=== PATIENT | male | born 1985 | race Caucasian/White ===

== ENCOUNTER 2017-11-05 08:08 | Emergency (ER) | payer OTHER ==
[2015-08-10 10:49] VITALS: BMI 25.0
[~2017-11-05 08:08] MED LIST: ALP5 PO; ALPR-445 PO; ASPI-757 PO; ATIVAN; CAPS60CR TP; CEFU500T10 PO; CELEXA PO; CIT20 PO; CLO1 PO; CLON-298 PO; DIVA500T98 PO; DOCU-416 PO; DULO30CA35 PO; DULO60CA56 PO; ESOM40CA42 PO; GABA-549 PO; LANS30CA70 PO; NAPR-724 PO; ONDA4TAB9 PO; OXYC-823 PO; PANT20TA27 PO; PER PO; SUMA100T33 PO; SUMA5SPR7 PO
[2017-11-05] MEDS ORDERED: NS(*) 0.9% 1000 ML BAG 1,000 ML IV ONE ×2 (08:12)
[2017-11-05] MEDS ORDERED: ONDANSETRON 4 MG/2 ML VIAL IVP ONE (08:15)
--- NOTE | 2017-11-05 08:19 | ER Report ---
History and Physical Time Seen By MD: 08:17 HPI/ROS CHIEF COMPLAINT: Vomiting HISTORY OF PRESENT ILLNESS: Patient is a 32-year-old male suffers from migraines for which she takes Imitrex had a late night partying last night as it was New Year's Kandace drank a significant amount of beer woke up about 3:30 in the morning persistent vomiting nonbloody nonbilious intractable came to the emergency room mild to moderate epigastric discomfort otherwise no additional complaints of note REVIEW OF SYSTEMS: Respiratory: No cough, no dyspnea. Cardiovascular: No chest pain, no palpitations. Gastrointestinal: Vomiting and mild abdominal discomfort Musculoskeletal: No back pain. Remainder of the 14 system rev: Yes Allergies: Coded Allergies: No Known Drug Allergies (Verified , 08/13/15) Home Meds Active Scripts Cefuroxime Axetil (CEFUROXIME) 500 Mg Tablet, 500 MG PO BID, #10 TAB 0 Refills Prov:ANNI MCDONNELL MD FACP 08/12/15 Reported Medications Esomeprazole Magnesium (NEXIUM) 40 Mg Capsule.dr, 1 CAP PO QDAY, CAP 08/10/15 Duloxetine Hcl (CYMBALTA) 60 Mg Capsule.dr, 60 MG PO QDAY, #5 CAP 08/09/15 Duloxetine Hcl (CYMBALTA) 30 Mg Capsule.dr, 30 MG PO QDAY, #5 CAP 08/09/15 Docusate Sodium (COLACE) 100 Mg Capsule, 100 MG PO BID, CAPSULE 08/09/15 Sumatriptan Succinate (SUMATRIPTAN SUCCINATE) 100 Mg Tablet, 1 TAB PO PRN for 30 Days 11/23/14 Gabapentin (GABAPENTIN) 300 Mg Capsule, 300 MG PO TID, CAPSULE 10/25/14 Discontinued Reported Medications Oxycodone/Acetaminophen (OXYCODONE/ACETAMINOPHEN 5MG/325 MG) 5 Mg/325 Mg Tab, 1- 2 TAB PO Q4H for PAIN 08/10/15 Clonazepam (CLONAZEPAM) 0.5 Mg Tablet, 0.5 MG PO PRN, #6 TAB 08/09/15 Oxycodone Hcl (OXYCONTIN) 10 Mg Tab.er.12h, 10 MG PO Q12H 08/09/15 Naproxen (NAPROXEN) 500 Mg Tablet, 500 MG PO BID, TAB 08/09/15 Aspirin (ASPIRIN) 325 Mg Tablet, 325 MG PO DAILY, TAB 10/5/15 Discontinued Scripts Ondansetron (ONDANSETRON ODT) 4 Mg Tab.rapdis, 4 MG PO Q6H, #10 TAB One tablet every 6 hours as needed for nausea and vomiting. Prov:ANNABELLA GREENFIELD BEAUTY ADVISOR 08/13/15 Reviewed Nurses Notes: Yes Old Medical Records Reviewed: Yes Hx Smoking: Yes Smoking Status: Former Smoker Constitutional Vital Sign - Last 24 Hours 11/05/17 08:19 Pulse 70 Resp 18 Pulse Ox 98 O2 Delivery Room Air Physical Exam General Appearance: The patient is alert, has no immediate need for airway protection and no current signs of toxicity. Actively vomiting Eyes: Pupils equal and round no injection. Respiratory: Chest is non tender, lungs are clear to auscultation. Cardiac: regular rate and rhythm [ ] Gastrointestinal: Abdomen is soft and non tender, no masses, bowel sounds normal. Musculoskeletal: Neck: Neck is supple and non tender. Extremities have full range of motion and are non tender. Skin: No rashes or lesions. [ ] DIFFERENTIAL DIAGNOSIS: After history and physical exam differential diagnosis was considered for enteritis gastroenteritis alcohol toxicity alcohol poisoning Medical Decision Making Data Points Result Diagram: 11/05/17 0820 11/05/17 0820 Laboratory Hematology Test 11/05/17 08:20 Red Blood Count 6.07 M/uL (4.00-5.60) Mean Corpuscular Volume 87.3 fL (80.0-96.0) Mean Corpuscular Hemoglobin 30.4 pg (26.0-33.0) Mean Corpuscular Hemoglobin Concent 34.8 g/dL (32.0-36.0) Red Cell Distribution Width 12.7 % (11.5-14.5) Mean Platelet Volume 6.5 fL (7.2-11.1) Neutrophils (%) (Auto) 73.6 % (39.4-72.5) Lymphocytes (%) (Auto) 19.8 % (17.6-49.6) Monocytes (%) (Auto) 4.6 % (4.1-12.4) Eosinophils (%) (Auto) 1.5 % (0.4-6.7) Basophils (%) (Auto) 0.5 % (0.3-1.4) Nucleated RBC Relative Count (auto) 0.1 /100WBC Neutrophils # (Auto) 9.1 K/uL (2.0-7.4) Lymphocytes # (Auto) 2.5 K/uL (1.3-3.6) Monocytes # (Auto) 0.6 K/uL (0.3-1.0) Eosinophils # (Auto) 0.2 K/uL (0.0-0.5) Basophils # (Auto) 0.1 K/uL (0.0-0.1) Nucleated RBC Absolute Count (auto) 0.01 K/uL Sodium Level 144 mmol/L (137-145) Potassium Level 3.9 mmol/L (3.5-5.0) Chloride Level 103 mmol/L (98-107) Carbon Dioxide Level 28 mmol/L (22-30) Blood Urea Nitrogen 13 mg/dl (9-21) Creatinine 0.80 mg/dl (0.66-1.25) Glomerular Filtration Rate Calc > 60.0 Random Glucose 103 mg/dl (75-110) Calcium Level 9.3 mg/dl (8.4-10.2) Total Bilirubin 0.6 mg/dl (0.2-1.3) Aspartate Amino Transf (AST/SGOT) 33 U/L (0-35) Alanine Aminotransferase (ALT/SGPT) 47 U/L (0-56) Alkaline Phosphatase 61 U/L (0-126) Total Protein 7.9 gm/dl (6.3-8.2) Albumin 4.6 g/dl (3.5-5.0) Lipase 76 U/L (23-300) Serum Alcohol 178 mg/dl Chemistry Test 11/05/17 08:20 White Blood Count 12.4 k/uL (4.5-11.0) Red Blood Count 6.07 M/uL (4.00-5.60) Hemoglobin 18.4 g/dL (14.0-18.0) Hematocrit 52.9 % (42.0-52.0) Mean Corpuscular Volume 87.3 fL (80.0-96.0) Mean Corpuscular Hemoglobin 30.4 pg (26.0-33.0) Mean Corpuscular Hemoglobin Concent 34.8 g/dL (32.0-36.0) Red Cell Distribution Width 12.7 % (11.5-14.5) Platelet Count 238 K/uL (150-450) Mean Platelet Volume 6.5 fL (7.2-11.1) Neutrophils (%) (Auto) 73.6 % (39.4-72.5) Lymphocytes (%) (Auto) 19.8 % (17.6-49.6) Monocytes (%) (Auto) 4.6 % (4.1-12.4) Eosinophils (%) (Auto) 1.5 % (0.4-6.7) Basophils (%) (Auto) 0.5 % (0.3-1.4) Nucleated RBC Relative Count (auto) 0.1 /100WBC Neutrophils # (Auto) 9.1 K/uL (2.0-7.4) Lymphocytes # (Auto) 2.5 K/uL (1.3-3.6) Monocytes # (Auto) 0.6 K/uL (0.3-1.0) Eosinophils # (Auto) 0.2 K/uL (0.0-0.5) Basophils # (Auto) 0.1 K/uL (0.0-0.1) Nucleated RBC Absolute Count (auto) 0.01 K/uL Glomerular Filtration Rate Calc > 60.0 Calcium Level 9.3 mg/dl (8.4-10.2) Total Bilirubin 0.6 mg/dl (0.2-1.3) Aspartate Amino Transf (AST/SGOT) 33 U/L (0-35) Alanine Aminotransferase (ALT/SGPT) 47 U/L (0-56) Alkaline Phosphatase 61 U/L (0-126) Total Protein 7.9 gm/dl (6.3-8.2) Albumin 4.6 g/dl (3.5-5.0) Lipase 76 U/L (23-300) Serum Alcohol 178 mg/dl Toxicology Test 11/05/17 08:20 Serum Alcohol 178 mg/dl ED Course/Re-evaluation ED Course ED clinical course medical decision making 32-year-old male presented with persistent vomiting he was still clinically intoxicated with a blood alcohol of 174 received medications for antiemetic he received several liters of fluids he is advised to discontinue alcohol consumption at this time continue with his antiemetics continue to tolerate by mouth fluids and to follow up with primary care diagnosis alcohol-induced and alcohol toxicity Decision to Disposition Date: Nov 05, 2017 Decision to Disposition Time: 09:44 Depart Departure Latest Vital Signs Vital Signs Date Time Temp Pulse Resp B/P (MAP) Pulse Ox O2 Delivery O2 Flow Rate FiO2 11/05/17 08:19 70 18 98 Room Air Impression: Primary Impression: Alcohol poisoning Additional Impression: Alcohol intoxication Referrals: MAGDALENE STEWARD PA-C (PCP) New Scripts Ondansetron (ZOFRAN ODT) 4 Mg Tab.rapdis 4 MG PO Q6H Y for NAUSEA, #20 TAB 0 Refills TAKE 1 TABLET BY MOUTH EVERY 12 HOURS Prov: ANNI FERNÁNDEZ MD 11/05/17 Patient Instructions: Abuse of Alcohol (DC), Alcohol Intoxication (DC) Problem Qualifiers ANNI FERNÁNDEZ MD Nov 05, 2017 08:19
[2017-11-05 08:43] LABS: PLATELET COUNT, AUTOMATED 238 K/uL (150-450)
[2017-11-05] MEDS ORDERED: ONDA4TAB PO (09:45)
[2017-11-05 09:59] VITALS: BP 128/107
== END 2017-11-05 09:52 | disposition home or self-care (01) ==
LOC: ER 08:14
DX: T51.91XA Toxic effect of unspecified alcohol, accidental (unintentional), initial encounter (principal)
CPT/HCPCS: 80320; 83690; 85025; 96361; 96374; 99284; J2405; J7030; 82040; 82247; 82310; 82374; 82435; 82565; 82947; 84075; 84132; 84155; 84295; 84450; 84460; 84520

== ENCOUNTER → 2018-03-12 | Outpatient (CLI) | payer OTHER ==
[2015-08-10 10:49] VITALS: BMI 25.0
[~2018-03-12] MED LIST changes: +GADOBENATE 529MG/1ML 15ML VIAL IVP ONE; -NAPR-724 PO; +NAPR500T31 PO; +ONDA4TAB PO
--- NOTE | 2018-03-12 14:28 | RADIOLOGY IMAGING REPORT ---
FACILITY: [facility] - [place], [place] PATIENT NAME: Will Sotelo : 1985 MR: [id number] V: [id number] EXAM DATE: ORDERING PHYSICIAN: FAMILIA ENAMORADO TECHNOLOGIST: Location: [facility] - [place] Patient: Will Sotelo : 1985 Visit/Account:[id number] Date of Sevice: 03/12/2018 EXAMINATION: MRI Brain without intravenous contrast MRI Brain with intravenous contrast MRI Cervical spine without intravenous contrast MRI Cervical spine with intravenous contrast MRI Thoracic spine without intravenous contrast MRI Thoracic spine with intravenous contrast HISTORY: Hyperreflexia. Urinary incontinence. Prior back surgery. Numbness. COMPARISON: Brain MRI dated 02/03/2016. Cervical spine MRI dated 02/03/2016. Chest CT dated 5. Thoracic spine radiographs dated 06/16/2006. TECHNIQUE: Multi-planar, multi-sequence brain, cervical spine, and thoracic spine MRI was performed before and after IV gadolinium. CONTRAST: 14 mL of IV MultiHance FINDINGS: BRAIN: Brain volume: Normal. Sagittal midline structures: Negative. Ventricles: Negative. Acute ischemic changes: None. Hemorrhage: None. Masses / edema: None. Enhancement: Negative. Londono-white: Negative. White matter: 5 punctate white matter lesions in the frontal lobes and left subinsular region (serie s 8, images 13, 14, 20, and 21). No abnormal enhancement or restricted diffusion. Vessels: Developmental venous anomaly at the junction of the right parietal and occipital lobes drai edwige into the superior sagittal sinus. Otherwise negative. Extra-axial: None. Calvarium / scalp: Negative. Skull base: Negative. Visualized sinuses / orbits: Rightward nasal septal deviation anteriorly/inferiorly. Leftward nasal septal deviation superiorly. Visualized upper neck: Negative. CERVICAL SPINE: Alignment: Normal. Vertebral marrow signal: Negative. Cranio-cervical junction: Negative. Visualized posterior fossa: Negative. Soft tissues: Negative. Cervical cord: Negative. Enhancement pattern: Negative. Disc Spaces: C1-2: Negative. C2-3: Mild left facet hypertrophy. No significant stenosis. No significant change. C3-4: Broad-based disc osteophyte complex, eccentric to the right. No significant spinal canal steno sis. Mild bilateral neural foraminal stenosis. Slightly worsened compared with 02/03/2016. C4-5: Anterior fusion. Broad-based disc osteophyte complex with right greater than left uncovertebra l hypertrophy. No significant spinal canal stenosis. Mild right neural foraminal stenosis. Surgica l hardware is new and neural foraminal stenosis is improved compared with 02/03/2016. C5-6: Anterior fusion. Broad-based disc osteophyte complex with right greater than left uncovertebra l hypertrophy. No significant spinal canal stenosis. Moderate left and severe right neural foramina l stenosis. Surgical hardware is new and neural foraminal stenosis is not significantly changed comp ared with 02/03/2016. C6-7: Broad-based disc osteophyte complex and uncovertebral hypertrophy. No significant spinal canal stenosis. Mild left and moderate right neural foraminal stenosis. Slightly worsened compared with 02/03/2016. C7-T1: Negative. THORACIC SPINE: Alignment: Negative. Vertebral marrow signal: Negative. Paravertebral soft tissues: Negative. Thoracic cord: Negative. Conus: Negative, terminates at T12 Enhancement: Negative. Disc Spaces: Multilevel degenerative disc disease with a few small disc protrusions. No significant stenosis. IMPRESSION: 1. 5 nonspecific punctate white matter lesions in the frontal lobes and left subinsular region with no abnormal enhancement or restricted diffusion. No significant change compared with 02/03/2016. 2. No abnormal signal in the spinal cord or spinal cord compression. 3. Developmental venous anomaly at the junction of the right parietal and occipital lobes draining i nto the superior sagittal sinus. 4. Multilevel degener tive disc disease in the cervical spine with postsurgical changes at C4-C5 and C5-C6 and slightly worsened adjacent segment disease at C3-C4 and C6-C7 compared with 02/03/2016.
--- NOTE | 2018-03-12 14:28 | RADIOLOGY IMAGING REPORT ---
FACILITY: [facility] [place]IENT NAME: Will Sotelo : 1985 MR: [id number] V: [id number] EXAM DATE: ORDERING PHYSICIAN: FAMILIA ENAMORADO TECHNOLOGIST: Location: [facility] - [place] Patient: Will Sotelo : 1985 Visit/Account:[id number] Date of Sevice: 03/12/2018 EXAMINATION: MRI Brain without intravenous contrast MRI Brain with intravenous contrast MRI Cervical spine without intravenous contrast MRI Cervical spine with intravenous contrast MRI Thoracic spine without intravenous contrast MRI Thoracic spine with intravenous contrast HISTORY: Hyperreflexia. Urinary incontinence. Prior back surgery. Numbness. COMPARISON: Brain MRI dated 02/03/2016. Cervical spine MRI dated 02/03/2016. Chest CT dated 5. Thoracic spine radiographs dated 06/16/2006. TECHNIQUE: Multi-planar, multi-sequence brain, cervical spine, and thoracic spine MRI was performed before and after IV gadolinium. CONTRAST: 14 mL of IV MultiHance FINDINGS: BRAIN: Brain volume: Normal. Sagittal midline structures: Negative. Ventricles: Negative. Acute ischemic changes: None. Hemorrhage: None. Masses / edema: None. Enhancement: Negative. Londono-white: Negative. White matter: 5 punctate white matter lesions in the frontal lobes and left subinsular region (serie s 8, images 13, 14, 20, and 21). No abnormal enhancement or restricted diffusion. Vessels: Developmental venous anomaly at the junction of the right parietal and occipital lobes drai edwige into the superior sagittal sinus. Otherwise negative. Extra-axial: None. Calvarium / scalp: Negative. Skull base: Negative. Visualized sinuses / orbits: Rightward nasal septal deviation anteriorly/inferiorly. Leftward nasal septal deviation superiorly. Visualized upper neck: Negative. CERVICAL SPINE: Alignment: Normal. Vertebral marrow signal: Negative. Cranio-cervical junction: Negative. Visualized posterior fossa: Negative. Soft tissues: Negative. Cervical cord: Negative. Enhancement pattern: Negative. Disc Spaces: C1-2: Negative. C2-3: Mild left facet hypertrophy. No significant stenosis. No significant change. C3-4: Broad-based disc osteophyte complex, eccentric to the right. No significant spinal canal steno sis. Mild bilateral neural foraminal stenosis. Slightly worsened compared with 02/03/2016. C4-5: Anterior fusion. Broad-based disc osteophyte complex with right greater than left uncovertebra l hypertrophy. No significant spinal canal stenosis. Mild right neural foraminal stenosis. Surgica l hardware is new and neural foraminal stenosis is improved compared with 02/03/2016. C5-6: Anterior fusion. Broad-based disc osteophyte complex with right greater than left uncovertebra l hypertrophy. No significant spinal canal stenosis. Moderate left and severe right neural foramina l stenosis. Surgical hardware is new and neural foraminal stenosis is not significantly changed comp ared with 02/03/2016. C6-7: Broad-based disc osteophyte complex and uncovertebral hypertrophy. No significant spinal canal stenosis. Mild left and moderate right neural foraminal stenosis. Slightly worsened compared with 02/03/2016. C7-T1: Negative. THORACIC SPINE: Alignment: Negative. Vertebral marrow signal: Negative. Paravertebral soft tissues: Negative. Thoracic cord: Negative. Conus: Negative, terminates at T12 Enhancement: Negative. Disc Spaces: Multilevel degenerative disc disease with a few small disc protrusions. No significant stenosis. IMPRESSION: 1. 5 nonspecific punctate white matter lesions in the frontal lobes and left subinsular region with no abnormal enhancement or restricted diffusion. No significant change compared with 02/03/2016. 2. No abnormal signal in the spinal cord or spinal cord compression. 3. Developmental venous anomaly at the junction of the right parietal and occipital lobes draining i nto the superior sagittal sinus. 4. Multilevel degener tive disc disease in the cervical spine with postsurgical changes at C4-C5 and C5-C6 and slightly worsened adjacent segment disease at C3-C4 and C6-C7 compared with 02/03/2016.
--- NOTE | 2018-03-12 14:29 | RADIOLOGY IMAGING REPORT ---
FACILITY: [facility] PATIENT NAME: Will Sotelo : 1985 MR: [id number] V: [id number] EXAM DATE: ORDERING PHYSICIAN: FAMILIA ENAMORADO TECHNOLOGIST: Location: [facility] - [place] Patient: Will Sotelo : 1985 Visit/Account:[id number] Date of Sevice: 03/12/2018 EXAMINATION: MRI Brain without intravenous contrast MRI Brain with intravenous contrast MRI Cervical spine without intravenous contrast MRI Cervical spine with intravenous contrast MRI Thoracic spine without intravenous contrast MRI Thoracic spine with intravenous contrast HISTORY: Hyperreflexia. Urinary incontinence. Prior back surgery. Numbness. COMPARISON: Brain MRI dated 02/03/2016. Cervical spine MRI dated 02/03/2016. Chest CT dated 5. Thoracic spine radiographs dated 06/16/2006. TECHNIQUE: Multi-planar, multi-sequence brain, cervical spine, and thoracic spine MRI was performed before and after IV gadolinium. CONTRAST: 14 mL of IV MultiHance FINDINGS: BRAIN: Brain volume: Normal. Sagittal midline structures: Negative. Ventricles: Negative. Acute ischemic changes: None. Hemorrhage: None. Masses / edema: None. Enhancement: Negative. Londono-white: Negative. White matter: 5 punctate white matter lesions in the frontal lobes and left subinsular region (serie s 8, images 13, 14, 20, and 21). No abnormal enhancement or restricted diffusion. Vessels: Developmental venous anomaly at the junction of the right parietal and occipital lobes drai edwige into the superior sagittal sinus. Otherwise negative. Extra-axial: None. Calvarium / scalp: Negative. Skull base: Negative. Visualized sinuses / orbits: Rightward nasal septal deviation anteriorly/inferiorly. Leftward nasal septal deviation superiorly. Visualized upper neck: Negative. CERVICAL SPINE: Alignment: Normal. Vertebral marrow signal: Negative. Cranio-cervical junction: Negative. Visualized posterior fossa: Negative. Soft tissues: Negative. Cervical cord: Negative. Enhancement pattern: Negative. Disc Spaces: C1-2: Negative. C2-3: Mild left facet hypertrophy. No significant stenosis. No significant change. C3-4: Broad-based disc osteophyte complex, eccentric to the right. No significant spinal canal steno sis. Mild bilateral neural foraminal stenosis. Slightly worsened compared with 02/03/2016. C4-5: Anterior fusion. Broad-based disc osteophyte complex with right greater than left uncovertebra l hypertrophy. No significant spinal canal stenosis. Mild right neural foraminal stenosis. Surgica l hardware is new and neural foraminal stenosis is improved compared with 02/03/2016. C5-6: Anterior fusion. Broad-based disc osteophyte complex with right greater than left uncovertebra l hypertrophy. No significant spinal canal stenosis. Moderate left and severe right neural foramina l stenosis. Surgical hardware is new and neural foraminal stenosis is not significantly changed comp ared with 02/03/2016. C6-7: Broad-based disc osteophyte complex and uncovertebral hypertrophy. No significant spinal canal stenosis. Mild left and moderate right neural foraminal stenosis. Slightly worsened compared with 02/03/2016. C7-T1: Negative. THORACIC SPINE: Alignment: Negative. Vertebral marrow signal: Negative. Paravertebral soft tissues: Negative. Thoracic cord: Negative. Conus: Negative, terminates at T12 Enhancement: Negative. Disc Spaces: Multilevel degenerative disc disease with a few small disc protrusions. No significant stenosis. IMPRESSION: 1. 5 nonspecific punctate white matter lesions in the frontal lobes and left subinsular region with no abnormal enhancement or restricted diffusion. No significant change compared with 02/03/2016. 2. No abnormal signal in the spinal cord or spinal cord compression. 3. Developmental venous anomaly at the junction of the right parietal and occipital lobes draining i nto the superior sagittal sinus. 4. Multilevel degener tive disc disease in the cervical spine with postsurgical changes at C4-C5 and C5-C6 and slightly worsened adjacent segment disease at C3-C4 and C6-C7 compared with 02/03/2016.
== END ==
LOC: MRI 02:03
PROVIDERS: ATTEND Specialist
DX: M47.892 Other spondylosis, cervical region (principal); R90.82 White matter disease, unspecified
CPT/HCPCS: 70553; 72156; 72157; A9577